=== PATIENT | female | born 1960 | race Caucasian/White ===

== ENCOUNTER 2020-12-02 09:12 | Emergency (ER) | payer SELFPAY ==
[~2020-12-02] VITALS: Ht 154 cm; Wt 87.0 kg
[~2020-12-02 09:12] MED LIST: ACYC800T PO; CIPR500T78 PO; HYDR-1231 PO; HYDR1TAB PO; HYDR1TAB8 OP; KETO10TA77 PO; MECL25TA3 PO; ONDA-42 SL; ONDA8TAB13 PO; ORPH100T PO; TMSL.4C PO; TRAM-21 PO
[2020-12-02] MEDS: KETOROLAC 60 MG/2 ML VIAL IM STA (10:01)
--- NOTE | 2020-12-02 10:01 | ED Back Pain ---
General Chief Complaint: General Problems/Pain Stated Complaint: PINCHED NERVE Nursing Triage Note: Patient states she has been experiencing pain in her right leg since Friday. She advised that she called into work Friday secondary to the pain and states that it has become progressively worse. She states she had trouble with her sciatic nerve about 20 years ago but no issues until now. Patient prefers to stand and states that sitting for extended periods makes the pain worse. Nursing Sepsis Screen: No Definite Risk Source of Information: Patient Exam Limitations: No Limitations History of Present Illness Date Seen by Provider: December 02, 2020 Time Seen by Provider: 09:37 Initial Comments Here with report of pain that radiates from the right low back down the right leg to above the knee. States it is numb or tingling and sometimes sharp. Denies bowel or bladder incontinence. Denies numbness between her legs. She works as a audiovisual equipment operator here and thinks she may have irritated by twisting. She has been using ibuprofen and did take a tramadol which seemed to help. She is also been using heating pads and those seem to help as well. Here for persistence of pain. Timing/Duration: 2-3 Days Severity: Moderate Pain/Injury Location: Back Radiation: Buttocks, Upper Legs Method of Injury: Unknown Modifying Factors: Worse With Movement; Improves With Pain Medication, Improves With Rest Associated Symptoms: muscle spasms; No fever, No weakness, No tingling in legs/feet; lower back pain; No loss of bladder control, No loss of bowel control Allergies and Home Medications Allergies Coded Allergies: No Known Drug Allergies (Verified , 03/21/08) Home Medications Meclizine HCl 25 Mg Tablet, 25 MG PO Q6H PRN for VERTIGO Prescribed by: JANEL WILSON on 01/31/161743 Ondansetron 8 Mg Tab.rapdis, 8 MG PO Q8H PRN for NAUSEA Prescribed by: JANEL WILSON on 01/31/161743 Patient Home Medication List Home Medication List Reviewed: Yes Review of Systems Constitutional: see HPI Respiratory: no symptoms reported Cardiovascular: no symptoms reported Gastrointestinal: see HPI Genitourinary: see HPI Musculoskeletal: see HPI, back pain, muscle pain Psychiatric/Neurological: See HPI Past Rzheouj-Qrjjor-Dmqgso Hx Past Med/Social Hx: Reviewed Nursing Past Med/Soc Hx Patient Social History Alcohol Use: Denies Use Smoking Status: Never a Smoker 2nd Hand Smoke Exposure: No Recent Infectious Disease Expo: No Recent Hopitalizations: No Immunizations Up To Date Date of Influenza Vaccine: Apr 27, 2014 Past Medical History Surgeries: Yes Hysterectomy Respiratory: No Cardiac: No Neurological: No Reproductive Disorders: No Sexually Transmitted Disease: No Genitourinary: No Gastrointestinal: No Musculoskeletal: No Endocrine: No Cancer: No Psychosocial: No Integumentary: No Blood Disorders: No Family Medical History Reviewed Nursing Family Hx No Pertinent Family Hx Physical Exam Vital Signs Vital Signs - First Documented 12/02/20 09:24 Pulse 87 Resp 16 B/P (MAP) 154/88 (110) O2 Delivery Room Air Capillary Refill : Less Than 3 Seconds Height, Weight, BMI Height: 5'1" Weight: 195lbs. oz. 88.104933kc; 36.00 BMI Method:Stated General Appearance: No Apparent Distress, WD/WN Cardiovascular: Regular Rate, Rhythm, No Murmur Respiratory: Lungs Clear, Normal Breath Sounds Back: No Vertebral Tenderness, Other (Tenderness at the right SI joint. Positive straight leg raise on the right and the raise of the left leg causes increased symptoms on the right.) Extremity: Pelvis Stable, Other (Gait steady and normal otherwise although somewhat antalgic.) Neurologic/Psychiatric: Alert, Oriented x3, No Motor/Sensory Deficits Skin: Normal Color, Warm/Dry Progress/Results/Core Measures Results/Orders My Orders Orders - TALYER LÓPEZ MD Ketorolac Injection (Toradol Injection) (12/02/20 09:53) Vital Signs/I&O 12/02/20 09:24 Pulse 87 Resp 16 B/P (MAP) 154/88 (110) O2 Delivery Room Air Blood Pressure Mean: 110 Progress Progress Note : Progress Note Seen and evaluated. Toradol 60 mg IM. Discharged home with return precautions. Patient verbalized understanding instructions and agreement with plan. Stretching therapy discussed as well as [id number] therapy. Departure Impression Primary Impression: Sciatica, right side Disposition: 01 HOME, SELF-CARE Condition: Stable Departure-Patient Inst. Decision time for Depature: 10:09 Referrals: ANNE MARIE MCLEAN DO (PCP) Primary Care Physician ROBERTO AVERY (Family) Primary Care Physician Patient Instructions: Sciatica (DC), Sciatica Exercises Add. Discharge Instructions: All discharge instructions reviewed with patient and/or family. Voiced understanding. Take medication as directed. You may use ibuprofen 600 mg every 8 hours as needed for pain. You may take Tylenol/acetaminophen 1000 mg every 8 hours as needed for pain. You may use topical icy hot with lidocaine or similar as well as heating pads with precautions to prevent alexander. Follow-up with your doctor next week for recheck and further evaluation as needed. Return for worse pain, fever, weakness, numbness between your legs, difficulty with walking or going to the bathroom or other concerns as needed. Scripts Tramadol HCl (Tramadol HCl) 50 Mg Tablet 50 MG PO Q6H PRN for PAIN, #14 TAB 0 Refills Prov: TAYLER LÓPEZ MD 12/02/20 Prednisone (Prednisone) 20 Mg Tab 40 MG PO DAILY, #14 TAB 0 Refills Prov: TAYLER LÓPEZ MD 12/02/20 TAYLER LÓPEZ MD December 02, 2020 10:01
[2020-12-02] MEDS ORDERED: TRM50T PO (10:11)
[2020-12-02] MEDS ORDERED: PRD20T PO (10:11)
[2020-12-02 10:24] VITALS: BP 154/88
== END 2020-12-02 10:25 | disposition home or self-care (01) ==
LOC: EDUNIT# 09:12 → ER 09:14
DX: M54.41 Lumbago with sciatica, right side (principal)
CPT/HCPCS: 99284

== ENCOUNTER 2023-06-18 06:04 | Outpatient (CLI) | payer OTHER ==
[~2023-06-18] VITALS: Ht 154.9 cm; Wt 86.4 kg
[~2023-06-18 06:04] MED LIST changes: +PRD20T PO; +TRM50T PO
== END 2023-06-18 16:45 | disposition home or self-care (01) ==
LOC: PREOP 06:04
PROVIDERS: ATTEND Specialist
DX: Z01.818 Encounter for other preprocedural examination (principal)

== ENCOUNTER 2023-06-20 09:42 | Day surgery (SDC) | payer OTHER ==
[~2023-06-20] VITALS: Ht 160 cm; Wt 86.4 kg
[2023-06-20] MEDS ORDERED: MIDAZOLAM INJ 2 MG/2 ML VIAL ONE (10:05)
[2023-06-20] MEDS ORDERED: TIMOLOL 0.5% (CATARACTS) 0.3 ML BTL OU PRN (10:15)
[2023-06-20] MEDS ORDERED: POVIDONE IODINE OPHTH SOLN 5% 30 ML OP ONE (10:15)
[2023-06-20] MEDS ORDERED: MOXIFLOXACIN OPHTH SOLN 5 MG/ML 0.5 ML SYRINGE OP ONE (10:15)
[2023-06-20] MEDS ORDERED: LIDOCAINE PF 1% 2 ML VIAL IR PRN (10:15)
[2023-06-20] MEDS: TETRACAINE 0.5% OPHTH SOLN 5 ML BTL OU PRN ×4 (10:25→10:50)
[2023-06-20 10:27] VITALS: BP 180/76
[2023-06-20] MEDS: TROPICAMIDE 1% OPH SOLN (MYDRIACYL) 15 ML BTL OP SCH ×3 (10:37→10:50)
[2023-06-20] MEDS: PHENYLEPHRINE 10% OPHTH SOLN 5 ML BTL OU SCH ×3 (10:37→10:50)
--- NOTE | 2023-06-20 11:02 | Ophthalmologist Pre-Op Note ---
Pre-Operative Progress Note H&P Reviewed The H&P was reviewed, patient examined and no changes noted. Date H&P Reviewed: Jun 20, 2023 Time H&P Reviewed: 11:01 Pre-Op Dx Cataract, Right Eye RELL BLANCHARD MD Jun 20, 2023 11:02
--- NOTE | 2023-06-20 11:20 | Ophthalmology Operative Report ---
Cataract removal/placement IOL PREOPERATIVE DIAGNOSIS: Cataract Right Eye POSTOPERATIVE DIAGNOSIS: Cataract Right Eye PROCEDURE: Cataract removal and placement of posterior chamber implant, right eye SURGEON: Parag Blanchard ANESTHESIA: Topical with sedation COMPLICATIONS: None ESTIMATED BLOOD LOSS: Minimal DESCRIPTION OF PROCEDURE: After proper informed consent was obtained, the patient, a 62 female, was taken to the Operating Room and the right eye was anesthetized with tetracaine. The right eye was then prepped and draped in the usual manner. A wire lid speculum was placed. A paracentesis was made at the left hand position. Preservative free lidocaine was injected into the anterior chamber followed by viscoelastic. A clear corneal incision was made in the temporal position. A capsulorrhexis was preformed and the central nuclear and cortical material were removed. The posterior capsule was polished and Barry 21.0 [id number] IOL was placed into the capsular bag. The residual viscoelastic was aspirated and balanced saline solution was injected into the anterior chamber. Moxifloxacin was injected into the anterior chamber. The wound was checked and found to be water tight. The patient tolerated the procedure well without complications. PARAG BLANCHARD MD Jun 20, 2023 11:20
[2023-06-20 11:35] VITALS: BP 174/81
--- NOTE | 2023-06-20 12:57 | Anesthesia-General Post-Op ---
MAC Patient Condition Mental Status/LOC: Same as Preop Cardiovascular: Satisfactory Nausea/Vomiting: Absent Respiratory: Satisfactory Pain: Controlled Complications: Absent Post Op Complications Complications None Follow Up Care/Instructions Patient Instructions None needed. Anesthesiology Discharge Order Discharge Order Patient was doing well after the procedure with no complaints, stable vital signs, no apparent adverse anesthesia problems. No complications reported per nursing. DAIANA AGUILERA DO Jun 20, 2023 12:57
== END 2023-06-20 11:39 | disposition home or self-care (01) ==
LOC: SDC 09:42
PROVIDERS: ATTEND Specialist
DX: H25.9 Unspecified age-related cataract (principal); Z87.891 Personal history of nicotine dependence